=== PATIENT | female | born 1960 ===

== ENCOUNTER 2025-06-13 17:46 | Emergency (ER) | payer OTHER ==
[~2025-06-13] VITALS: Ht 160 cm; Wt 56.7 kg
[2025-06-13] MEDS ORDERED: ZESTRIL2.5 MG (17:55)
[2025-06-13] MEDS ORDERED: KETOROLAC TROMETHAMINE 60 MG VIAL IM ONE ×2 (18:26→18:30)
[2025-06-13] MEDS ORDERED: IBUPROFEN800 MG PO (21:47)
== END 2025-06-13 21:53 | disposition home or self-care (01) ==
LOC: ER 17:46
DX: S52.592A Other fractures of lower end of left radius, initial encounter for closed fracture (principal); W18.39XA Other fall on same level, initial encounter; Y93.89 Activity, other specified; Y92.821 Forest as the place of occurrence of the external cause; Y99.9 Unspecified external cause status; I10 Essential (primary) hypertension